=== PATIENT | female | born 1990 | race Caucasian/White ===

== ENCOUNTER 2016-11-20 22:29 | Emergency (ER) | payer SELFPAY ==
[~2016-11-20] VITALS: Ht 152.4 cm; Wt 56.7 kg
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
--- NOTE | 2016-11-20 23:23 | NUR ---
DR. GOMEZ AT BEDSIDE FOR EVAL.
[2016-11-20] MEDS ORDERED: IBUPROFEN 400 MG TABLET ONE (23:29)
[2016-11-20] MEDS ORDERED: IBUPROFEN 400 MG TABLET PO ONE (23:30)
--- NOTE | 2016-11-20 23:35 | NUR ---
PT TO CT.
--- NOTE | 2016-11-20 23:46 | NUR ---
PT RETURNED FROM CT.
--- NOTE | 2016-11-21 00:51 | NUR ---
pt ambulatory w/ steady gait, resp even & unlabored w/ no acute distress noted. Patient discharged to home in stable condition. Written and verbal after care instructions given along w/ prescription for ibuprofen. Patient verbalizes understanding of instruction.
[2016-11-21 00:52] VITALS: BP 121/78
== END 2016-11-21 00:53 | disposition home or self-care (01) ==
LOC: ER 22:33
DX: S20.211A Contusion of right front wall of thorax, initial encounter (principal); F17.200 Nicotine dependence, unspecified, uncomplicated; V43.52XA Car driver injured in collision with other type car in traffic accident, initial encounter; Y93.89 Activity, other specified; Y92.488 Other paved roadways as the place of occurrence of the external cause; Y99.8 Other external cause status
CPT/HCPCS: 71100-TC; A4606; Z7610